=== PATIENT | female | born 1975 | race Caucasian/White ===

== ENCOUNTER 2019-10-13 01:57 | Emergency (ER) | payer OTHER ==
[~2019-10-13] VITALS: Ht 162.6 cm; Wt 74.8 kg
[2019-10-13] MEDS ORDERED: HUMALOG100 UNIT/1 SUBQ (02:07)
[2019-10-13] MEDS ORDERED: AMITRIPTYLINE H50 M2 PO (02:07)
[2019-10-13] MEDS ORDERED: LANTUS SUBQ (02:07)
[2019-10-13 02:45] LABS: ABSOLUTE NEUTROPHILS 2.4 thou/uL (1.4-8.2); BASOPHILS 0.9 % (0.0-2.0); EOSINOPHILS 1.5 % (0.0-3.0); HEMATOCRIT 41.3 % (37.0-47.0); HEMOGLOBIN 14.1 gm/dL (12.0-15.0); LYMPHOCYTES 26.8 % (24.0-44.0); MCH 32.9 pg (26.0-34.0); MCV 96.6 fL (80.0-100.0); MONOCYTES 6.1 % (1.0-8.0); PLATELET COUNT 66 thou/uL (150-400); POLYS 64.7 % (36.0-66.0); RBC 4.28 mil/uL (4.20-5.00); RDW 14.2 % (10.5-14.5)
[2019-10-13 02:55] LABS: ANION GAP 9 mmol/L (7-16); BUN 9 mg/dL (7-18); CALCIUM 8.7 mg/dL (8.5-10.1); CHLORIDE 104 mmol/L (98-107); CO2 25 mmol/L (21-32); CREATININE 0.7 mg/dL (0.6-1.0); GLUCOSE 343 mg/dL (74-106); POTASSIUM 4.7 mmol/L (3.5-5.1); SODIUM 138 mmol/L (136-145)
[2019-10-13 03:07] LABS: ALBUMIN 2.8 g/dL (3.4-5.0); LIPASE 16 U/L (73-393); SGOT 155 U/L (15-37); SGPT 106 U/L (30-65); TOTAL BILIRUBIN 1.3 mg/dL (0.2-1.0); TOTAL PROTEIN 7.4 g/dL (6.4-8.2); TROPONIN-I <0.06 ng/mL (<0.06)
[2019-10-13 03:50] LABS: INR 1.1; PROTIME 11.4 Seconds (9.3-11.4)
[2019-10-13 03:55] LABS: URINE BILIRUBIN NEGATIVE (Negative); URINE BLOOD 3+ (Negative); URINE CLARITY CLEAR; URINE COLOR YELLOW; URINE GLUCOSE-RANDOM* 3+ (Negative); URINE KETONES NEGATIVE (Negative); URINE LEUKOCYTES-REFLEX NEGATIVE (Negative); URINE NITRITE-REFLEX NEGATIVE (Negative); URINE PROTEIN (DIPSTICK) NEGATIVE (Negative)
[2019-10-13 04:01] LABS: BACTERIA-REFLEX 1-9 Few /HPF (None Seen); CALCIUM OXALATE 0-3 Few /LPF (None Seen); CASTS None Seen /LPF (None Seen); MUCUS 0-3 Light strn/LPF (None Seen); SQUAMOUS 0-3 Few /LPF (0-3); URINE WBC-REFLEX 0-5 Rare /HPF (0-5)
[2019-10-13 04:06] LABS: AMP/METHAMP Negative (Negative); BARBITURATES Negative (Negative); BENZODIAZEPINES Negative (Negative); COCAINE Negative (Negative); METHADONE Negative (Negative); OPIATES POSITIVE (Negative); PCP Negative (Negative)
[2019-10-13] MEDS ORDERED: NORFLEX100 MG PO (04:18)
[2019-10-13] MEDS ORDERED: FLOMAX0.4 MG PO (04:19)
[2019-10-13 04:34] VITALS: BP 122/77
--- NOTE | 2019-10-13 08:33 | EKG ---
[facility] [place] [address] ELECTROCARDIOGRAM REPORT Name: NICOLE CASE Room #: DEP [facility]#: [id number] Admission: 10/13/19 Attend Phys: Discharge: 10/13/19 Date of : 71 Report #: [id number] THIS REPORT FOR: cc: KT BLAND MD Physician not on staff Chuck Baugh MD [facility] ~ THIS REPORT FOR: //name// [facility] ED Test Date: 2019-10-13 Test Time: 02:20:47 Pat Name: NICOLE CASE Department: Room: Gender: F [employer] Site Monitor: [facility] : 1975 Requested By: Gregory Cesar Order Number: [id number] MD: Chuck Baugh Measurements Intervals [place] Rate: 99 P: 57 MA: 145 QRS: -14 QRSD: 89 T: 39 QT: 360 QTc: 462 Interpretive Statements Sinus rhythm No significant abnormality No previous ECG available for comparison Electronically Signed On 10-13-2019 8:33:45 CDT by Chuck Baugh [email or web address] <ELECTRONICALLY SIGNED> By: Chuck Baugh MD, [facility] 10/13/19 08 9 9 Chuck Baugh MD, FACC /EPI
== END 2019-10-13 05:15 | disposition home or self-care (01) ==
LOC: ER 01:57
PROVIDERS: Emergency Medicine
DX: B18.2 Chronic viral hepatitis C (principal); K74.60 Unspecified cirrhosis of liver; N20.0 Calculus of kidney; R33.9 Retention of urine, unspecified; R16.1 Splenomegaly, not elsewhere classified; D69.6 Thrombocytopenia, unspecified; E11.65 Type 2 diabetes mellitus with hyperglycemia; M54.9 Dorsalgia, unspecified; Z90.710 Acquired absence of both cervix and uterus; Z90.49 Acquired absence of other specified parts of digestive tract; Z79.4 Long term (current) use of insulin; Z79.899 Other long term (current) drug therapy; Z88.2 Allergy status to sulfonamides; Z88.5 Allergy status to narcotic agent; Z91.040 Latex allergy status

== ENCOUNTER 2019-12-15 17:27 | Emergency (ER) | payer OTHER ==
[~2019-12-15] VITALS: Ht 162.6 cm; Wt 77.1 kg
[~2019-12-15 17:27] MED LIST: AMITRIPTYLINE H50 M2 PO; FLOMAX0.4 MG PO; HUMALOG100 UNIT/1 SUBQ; LANTUS SUBQ; NORFLEX100 MG PO
[2019-12-15] MEDS ORDERED: PHENAZOPYRIDIN200 M2 PO (17:40)
[2019-12-15] MEDS ORDERED: CIPRO500 MG PO (17:40)
[2019-12-15] MEDS ORDERED: HYDROXYZINE HCL25 M2 PO (17:41)
[2019-12-15] MEDS ORDERED: METHOCARBAMOL500 M2 PO (17:41)
[2019-12-15 18:27] LABS: URINE BILIRUBIN NEGATIVE (Negative); URINE BLOOD 3+ (Negative); URINE CLARITY CLEAR; URINE COLOR YELLOW; URINE GLUCOSE-RANDOM* TRACE (Negative); URINE KETONES NEGATIVE (Negative); URINE LEUKOCYTES-REFLEX TRACE (Negative); URINE PROTEIN (DIPSTICK) NEGATIVE (Negative); URINE SPECIFIC GRAVITY <= 1.005 (1.005-1.035)
[2019-12-15 18:29] LABS: HEMATOCRIT 38.9 % (37.0-47.0); HEMOGLOBIN 13.3 gm/dL (12.0-15.0); MCH 32.3 pg (26.0-34.0); MCHC 34.2 g/dL (28.0-37.0); MCV 94.4 fL (80.0-100.0); RBC 4.13 mil/uL (4.20-5.00); RDW 13.5 % (10.5-14.5); WBC 2.7 thou/uL (4.0-11.0)
[2019-12-15 18:30] LABS: URINE NITRITE-REFLEX POSITIVE (Negative)
[2019-12-15 18:39] LABS: CALCIUM OXALATE 0-3 Few /LPF (None Seen); CASTS None Seen /LPF (None Seen); SQUAMOUS 0-3 Few /LPF (0-3)
[2019-12-15 18:40] LABS: URINE RBC 3-10 Few /HPF (0-2); URINE WBC-REFLEX 0-5 Rare /HPF (0-5)
[2019-12-15 18:41] LABS: BACTERIA-REFLEX 1-9 Few /HPF (None Seen)
[2019-12-15 18:43] LABS: AMP/METHAMP Negative (Negative); BARBITURATES Negative (Negative); BENZODIAZEPINES Negative (Negative); CALCIUM 8.8 mg/dL (8.5-10.1); COCAINE Negative (Negative); CREATININE 0.9 mg/dL (0.6-1.0); METHADONE Negative (Negative); OPIATES POSITIVE (Negative); PCP Negative (Negative); POTASSIUM 3.9 mmol/L (3.5-5.1)
[2019-12-15 18:46] LABS: ALBUMIN 2.7 g/dL (3.4-5.0); TOTAL BILIRUBIN 1.1 mg/dL (0.2-1.0); TOTAL PROTEIN 6.9 g/dL (6.4-8.2)
[2019-12-15 18:48] LABS: ABSOLUTE NEUTROPHILS 1.7 thou/uL (1.4-8.2)
[2019-12-15 18:49] LABS: LARGE PLATELETS OCCASIONAL; PLATELET COUNT 53 thou/uL (150-400)
[2019-12-15] MEDS ORDERED: LEVSIN-SL0.125 MG SUBLING (19:44)
[2019-12-15 20:15] VITALS: BP 147/78
== END 2019-12-15 20:17 | disposition home or self-care (01) ==
LOC: ER 17:27
PROVIDERS: Physician Assistant
DX: T83.091A Other mechanical complication of indwelling urethral catheter, initial encounter (principal); R30.0 Dysuria; N32.89 Other specified disorders of bladder; M62.830 Muscle spasm of back; E11.9 Type 2 diabetes mellitus without complications; F17.210 Nicotine dependence, cigarettes, uncomplicated; Z90.710 Acquired absence of both cervix and uterus; Z79.4 Long term (current) use of insulin; Z79.899 Other long term (current) drug therapy; Z88.2 Allergy status to sulfonamides; Z88.5 Allergy status to narcotic agent; Z91.040 Latex allergy status